=== PATIENT | female | born 1990 | race Caucasian/White ===

== ENCOUNTER 2018-10-04 07:04 | Emergency (ER) | payer OTHER ==
[~2018-10-04] VITALS: Ht 160 cm; Wt 83.2 kg
[2018-10-04 07:06] VITALS: BP 126/89
== END 2018-10-04 10:28 | disposition home or self-care (01) ==
LOC: ED 08:49
DX: K52.9 Noninfective gastroenteritis and colitis, unspecified (principal)
CPT/HCPCS: 36415; 74177; 76700; 80053; 83690; 84703; 85025; 96374; 99284; J2405; J7030; Q9967